=== PATIENT | male | born 1960 | race Caucasian/White ===

== ENCOUNTER 2021-05-23 02:20 | Day surgery (SDC) | payer OTHER, SELFPAY ==
[2021-05-19 12:27] VITALS: BMI 22.8
--- NOTE | 2021-05-23 09:58 | WPDANESEPPF ---
Anes - Initial Pre Proc Eval Procedure: Operation Date: 05/23/21 10:45 Proposed Procedures p Screening Colonoscopy - Syed Singletary MD Date/Time: 05/23/21 09:58 Surgeon: Syed Singletary MD Pre Op Diagnosis: neoplasm screening Patient Data Age: 60 Gender: M Height: 1.83 m Weight: 76.3 kg Allergies Allergy/AdvReac Type Severity Reaction Status Date / Time No Known Allergies Allergy Verified 05/23/21 10:34 Home Medications Medication Instructions Recorded Confirmed Type multivit with min-folic tablet PO 04/18/21 History acid-lutein 200 mcg-137.5 mcg chewable tablet omega-3 fatty acids 1,000 mg 1,000 mg PO BID 04/18/21 History capsule Patient hx anesthesia problems: none Family hx anesthesia problems: none PMFSH Past Medical History Medical History BMI 23.0-23.9, adult Family History Family History (Updated 04/18/21 @ 10:03 by Starla Cullen) Father Malignant neoplasm of prostate Mother Alzheimer disease Grandparent Diabetes mellitus Alzheimer disease Social History Social History Smoking status: Never smoker Alcohol intake: current Alcohol use details: OCCASIONALLY Substance use: never Substance use type: does not use Living arrangements: with family Spiritual care concerns: No Anes - Eval Final PreProcedure Day of Procedure 05/23/21 09:58 Patient weight: normal Heart: regular rate and rhythm Lungs: clear to auscultation and normal air movement Airway: Mallampati scale class II Neurological: alert and oriented Last oral intake: >/= 8 hours ASA classification: I Emergent: no Anesthetic plan: proceed Anesthesia type and monitoring: general GIVS Informed Consent: The patient's anesthetic plan and its attendant risks and benefits were discussed with the patient/family/POA. Questions were solicited and answers provided to the satisfaction of the patient/family/POA.
--- NOTE | 2021-05-23 10:31 | P.CONGI_ITS ---
Assessment and Plan Assessment and plan (1) Screening for colon cancer: Code(s): Z12.11 - Encounter for screening for malignant neoplasm of colon Status: Acute Assessment and Plan: Patient presents for neoplasia screening exam today. Colonoscopy will be performed. Patient appears to be at average risk for colon polyps. GI Consult Note Consult date/time: 05/23/21 10:31 HPI: Quin Michel is a 60 year old male Presents for screening colonoscopy. He reports that his weight appetite bowel movements are normal. His last exam was 10 years ago. Patient states his bowel habits are regular. He denies abdominal pain. He has had no bleeding. Family history is noncontri butory. Screening colonoscopy suggested today. Review of Systems Review of Systems: All systems reviewed & are unremarkable except as noted in HPI and below PMFSH Past Medical History Medical History BMI 23.0-23.9, adult Family History Family History (Updated 04/18/21 @ 10:03 by Starla Cullen) Father Malignant neoplasm of prostate Mother Alzheimer disease Grandparent Diabetes mellitus Alzheimer disease Social History Social History Smoking status: Never smoker Alcohol intake: current Alcohol use details: OCCASIONALLY Substance use: never Substance use type: does not use Living arrangements: with family Spiritual care concerns: No Meds Home Medications and Allergies Home Medications Medication Instructions Recorded Confirmed Type multivit with min-folic tablet PO 04/18/21 History acid-lutein 200 mcg-137.5 mcg chewable tablet omega-3 fatty acids 1,000 mg 1,000 mg PO BID 04/18/21 History capsule Allergies Allergy/AdvReac Type Severity Reaction Status Date / Time No Known Allergies Allergy Verified 05/19/21 12:41 Exam Narrative: Physical exam reveals patient to be alert. Vital signs stable. HEENT exam is unremarkable. Patient is anicteric. Lungs are clear to auscultation and percussion. Heart is without murmur or extra sounds. Abdominal exam bowel sounds are present soft nontender with no organomegaly. Digital external rectal exam is normal.
[2021-05-23 10:36] VITALS: BP 125/70; PULSE 51; RESP 16; TEMP 36; O2SAT 100; BMI 23.1
[2021-05-23] MEDS: LACTATED RINGERS 1,000 ML 150 ML IV CONT (10:53)
[2021-05-23 11:31] VITALS: BP 92/63; PULSE 51; RESP 15; O2SAT 100
[2021-05-23 11:41] VITALS: BP 114/71; PULSE 50; RESP 12; O2SAT 100
[2021-05-23 11:51] VITALS: BP 114/71; PULSE 50; RESP 15; O2SAT 100
== END 2021-05-23 11:59 | disposition home or self-care (01) ==
PROVIDERS: PCP Family Medicine; Visit Provider Internal Medicine Gastroenterology
PROC: 0DJD8ZZ Inspection of Lower Intestinal Tract, Via Natural or Artificial Opening Endoscopic (ICD-10-PCS; CPT 45378; principal; 2021-05-23 10:45)
DX: Z12.11 Encounter for screening for malignant neoplasm of colon (principal); K64.8 Other hemorrhoids
CPT/HCPCS: 45378; J2704; J7120

== ENCOUNTER 2024-08-11 11:09 | Outpatient (CLI) | payer OTHER, SELFPAY ==
[2024-08-11 11:33] LABS: Basophils Absolute Auto 0.1 K/mm3 (0.0-0.1); Basophils Percent Auto 1.3 % (0.2-1.2); Eosinophils Absolute Auto 0.1 K/mm3 (0-0.3); Eosinophils Percent Auto 2.1 % (0-4.4); Hematocrit 48.6 % (42.0-52.0); Immature Granulocyte Absolute 0.01 K/mm3 (0.00-0.031); Immature Granulocyte Percent A 0.3 % (0-0.5); Lymphocytes Absolute Auto 1.17 K/mm3 (0.9-3.2); Lymphocytes Percent Auto 30.5 % (18.3-44.2); Mean Corpuscular HGB Conc 32.9 g/dl (32-36); Mean Corpuscular Hemoglobin 30.3 pg (26-34); Mean Platelet Volume 8.9 fl (7.4-10.4); Monocytes Absolute Auto 0.4 K/mm3 (0.1-0.6); Monocytes Percent Auto 10.2 % (2.6-8.5); Neutrophils Absolute Auto 2.1 K/mm3 (1.3-6.7); Neutrophils Percent Auto 55.6 % (45.5-73.1); Platelet Count Result 243 k/mm3 (150-375); Red Blood Count 5.28 M/mm3 (4.6-6.20); Red Cell Distribution Width 12.9 % (11.5-14.5); White Blood Count 3.8 K/mm3 (4.5-10.0)
[2024-08-11 13:20] LABS: Iron 115 ug/dL (49-181)
[2024-08-11 13:21] LABS: Alanine Aminotransferase 19 U/L (6-50); Albumin Level 4.8 g/dL (3.5-5.1); Alkaline Phosphatase 44 U/L (38-126); Anion Gap 5 mmol/L (4-12); Aspartate Amino Transferase 27 U/L (17-59); Bilirubin,Total 1.5 mg/dL (0.2-1.3); Blood Urea Nitrogen 13 mg/dL (9-20); Calcium 9.9 mg/dL (8.4-10.2); Carbon Dioxide 32 mmol/L (22-30); Chloride 102 mmol/L (98-107); Estimated Glomerular Filt Rate > 60; Glucose 104 mg/dL (65-110); Potassium 4.6 mmol/L (3.4-5.0); Sodium 139 mmol/L (137-145)
[2024-08-11 13:33] LABS: Percent Iron Saturation 34 % (20-50)
[2024-08-11 14:27] LABS: Folic Acid 10.3 ng/mL (2.76->20)
== END 2024-08-11 11:10 | disposition home or self-care (01) ==
LOC: ANHLAB 11:11
PROVIDERS: PCP Family Medicine; Visit Provider Internal Medicine Hematology & Oncology
DX: D70.9 Neutropenia, unspecified (principal); D64.9 Anemia, unspecified
CPT/HCPCS: 36415; 80053; 82607; 82728; 82746; 83540; 83550; 85025; 86038; 86039; 88184

== ENCOUNTER 2024-09-08 08:42 | Outpatient (CLI) | payer OTHER, SELFPAY ==
--- NOTE | ~2024-09-08 | US_ITS ---
EXAM: ABDOMEN ULTRASOUND HISTORY: Neutropenia COMPARISON: None FINDINGS: LIVER: The liver is unremarkable in size measuring 15.6cm in longitudinal dimension. Multiple rounded areas of increased echogenicity within the liver suggesting hemangiomas. The main portal vein is patent demonstrating hepatopedal flow. GALLBLADDER: No stones are identified within the gallbladder. No gallbladder wall thickening or pericholecystic fluid. BILE DUCTS: Common bile duct measures 2.4mm. PANCREAS: Limited evaluation of the pancreas secondary to overlying bowel gas SPLEEN: The spleen is unremarkable in echogenicity and size measuring 9.6cm in longitudinal dimension . RIGHT KIDNEY: 10.2 cm. In length. No hydronephrosis or bulky renal calculi. LEFT KIDNEY: 11.6cm in length. No hydronephrosis or renal calculi. VASCULATURE : The abdominal aorta is nonaneurysmal. The IVC is patent. IMPRESSION: Multiple hyperechoic foci within the liver, for which hemangiomas are suspected and for which contras t enhanced MRI (with liver mass protocol) may be performed for confirmation. Unremarkable sonographic evaluation of the abdomen, as detailed above. Evaluation of the pancreas is limited by overlying bowel gas. Reviewed, dictated and finalized at location A. CONSULTANT IMPRESSION: Multiple hyperechoic foci within the liver, for which hemangiomas are suspected and for which contrast enhanced MRI (with liver mass protocol) may be performe d for confirmation. Unremarkable sonographic evaluation of the abdomen, as detailed above. Evaluation of the pancreas is limited by overlying bowel gas.
== END 2024-09-08 08:43 | disposition home or self-care (01) ==
PROVIDERS: PCP Family Medicine; Visit Provider Internal Medicine Hematology & Oncology
DX: D70.9 Neutropenia, unspecified (principal)
CPT/HCPCS: 76700

== ENCOUNTER 2025-04-21 13:47 | Outpatient (CLI) | payer OTHER, SELFPAY ==
[2025-04-21 13:55] LABS: Hematocrit 46.8 % (42.0-52.0); Hemoglobin 15.1 g/dL (14.0-18.0); Immature Granulocyte Percent A 0.3 % (0-0.5); Lymphocytes Absolute Auto 0.97 K/mm3 (0.9-3.2); Mean Corpuscular HGB Conc 32.3 g/dl (32-36); Mean Corpuscular Hemoglobin 29.8 pg (26-34); Mean Corpuscular Volume 92.3 fl (80-100); Nucleated Red Blood Cells Absolute Auto 0.000 K/mm3 (0.0-0.012); Nucleated Red Blood Cells Perc 0.0 % (0.0-0.2); Platelet Count Result 262 k/mm3 (150-375); Red Blood Count 5.07 M/mm3 (4.6-6.20); White Blood Count 7.9 K/mm3 (4.5-10.0)
[2025-04-21 14:01] LABS: Blood Urea Nitrogen 33 mg/dL (8-26); Carbon Dioxide 27 mmol/L (22-30); Chloride 97 mmol/L (98-109); Estimated Glomerular Filt Rate 38; Glucose 97 mg/dL (70-105); Ionized Calcium (POC) 1.19 mmol/L (1.11-1.31); Potassium 4.6 mmol/L (3.5-4.9); Sodium 135 mmol/L (138-146)
--- OUTSIDE RECORDS SUMMARY | 2025-04-21 14:08 | XMS_ITS | Encounter Summary ---
Author Organization [facility] (FORMERLY [facility])[3] LISA Arthur [facility] Address [address] [place] [address] Care Team Providers Care Credit Report Checker Name Role Phone Antonio Ivey MD Primary Care Provider [phone] Reason for Visit * Reason Comments Follow Up Encounter Details Date Type Department Care Team (Late st Contact Info) Description 04/21/2025 2:15 PM CDT Office Visit [facility] Oncology and Hematology - Saw [address] [facility] [address] [place] [address] Oliver Farooq MD [address] [facility] [address] [place] [address] Arrived Social History Tobacco Use Types Packs/Day Years Used Date Smoking Tobacco: Never Smokeless Tobacco: Never Alcohol Use Standard Drinks/Week Comments Yes 0 (1 standard drink = 0.6 oz pure alcohol) occasionally-maybe once a week if that Sex and Gender Information Value Date Recorded Sex Assigned at Not on file Legal Sex Male 12:31 PM CDT Gender Identity Not on file Sexual Orientation Not on file documented as of this encounter Last Filed Vital Signs Vital Sign Reading Time Taken Comments Blood Pressure 107/72 04/21/2025 1:57 PM CDT Pulse 77 04/21/2025 1:57 PM CDT Temperature 36.5 C (97.7 F) 04/21/2025 1:57 PM CDT Respiratory Rate - - Oxygen Saturation 99% 04/21/2025 1:57 PM CDT Inhaled Oxygen Concentration - - Weight 77.6 kg (171 lb) 04/21/2025 1:57 PM CDT Height 182.9 cm (6') 04/21/2025 1:57 PM CDT Body Mass Index 23.19 04/21/2025 1:57 PM CDT documented in this encounter Plan of Treatment Not on file documented as of this encounter Visit Diagnoses Not on filedocumented in this encounter Care Teams Credit Report Checker Relationship Specialty Start Date End Date Antonio Ivey MD [address] [place] [address] PCP - General Family Practice 06/20/24 documented as of this encounter
--- OUTSIDE RECORDS SUMMARY | 2025-04-21 14:08 | XMS_ITS | Clinical Summary ---
Author Organization [facility] (Formerly [facility]) Marni guardado Sairafrank Address [address] [place] [address] Care Team Providers Care Appraiser Timber Name Role Phone Antonio Ivey MD Primary Care Provider [phone] Allergies No known active allergies Medications No known medications Active Problems No known active problems Encounters Date Type Department Care Team Description 04/21/2025 2:15 PM CDT Office Visit [facility] Oncology and Hematology - [address] [address] Oliver Farooq MD Arrived from Last 3 Months Family History Medical History Relation Name Comments No Known Problems Child Liver Cancer Father Pancreatic Cancer Father No Known Problems Mother Cancer - Other Sister 1 No Known Problems Sister 2 Relation Name Status Comments Child Alive Father Mother Sister 1 Sister 2 Alive Social History Tobacco Use Types Packs/Day Years [...] on file Sexual Orientation Not on file Last Filed Vital Signs Vital Sign Reading Time Taken Comments Blood Pressure 107/72 04/21/2025 1:57 PM CDT Pulse 77 04/21/2025 1:57 PM CDT Temperature 36.5 C (97.7 F) 04/21/2025 1:57 PM CDT Respiratory Rate 16 08/11/2024 10:24 AM DIGITAL MARKETING SPECIALIST Oxygen Saturation 99% 04/21/2025 1:57 PM CDT Inhaled Oxygen Concentration - - Weight 77.6 kg (171 lb) 04/21/2025 1:57 PM CDT Height 182.9 cm (6') 04/21/2025 1:57 PM CDT Body Mass Index 23.19 04/21/2025 1:57 PM CDT Plan of Treatment Upcoming Encounters Date Type Department Care Team (Late st Contact Info) Description 04/21/2025 2:15 PM CDT Office Visit [facility] Oncology and Hematology [facility] [address] [place] [address] Oliver Farooq MD [address] [facility] [address] [place] [address] Arrived Health Maintenance Due Date Last Done Comments Pre-Diabetes and Diabetes Screening 1960 DTAP/TDAP/TD VACCINES (1 - Tdap) 11/14/1979 COLORECTAL SCREENING 2005 Colorectal Cancer Screening 2005 FIT-DNA Q 3 years 2005 FIT/FOBT Q 1 year 2005 Flex Sig/CT Colonography Q 5 years 2005 ZOSTER VACCINE (1 of 2) 2010 Preventative Visit- Commercial 09/10/2024 INFLUENZA VACCINE (#1) 2025 RSV VACCINE (60+ or ) (1 - 1-dose 75+ series) 11/14/2035 Procedures Procedure Name Priority Date/Time Associated Diagnosis Comments VITAMIN B12 AND FOLATE Routine 04/13/2025 7:08 AM CDT Chronic anemia from Last 3 Months Results * VITAMIN B12 AND FOLATE (04/13/2025 7:08 AM CDT) VITAMIN B12 413 200 - 1100 pg/mL [facility] FOLATE, SERUM 14.8 ng/mL [facility] Comment: Reference Range Low: <3.4 Borderline: 3.4-5.4 Normal: >5.4 FASTING:YES FASTING: YES Test Performed at: [email or web address] [id number] [place] [address] Jordy Trivedi MD Blood 04/13/2025 7:08 AM CDT 04/13/2025 7:08 AM CDT us Oliver Farooq MD CHEMISTRY ORDERABLES Final Resu lt [facility] [phone] [facility] [id number] [address] [id number] from Last 3 Months Insurance [employer] CHOICE POS II Care Teams Appraiser Timber Relationship Specialty Start Date End Date Antonio Ivey MD [address] [place] [address] PCP - General Family Practice 06/20/24
[2025-04-21 16:28] LABS: Alanine Aminotransferase 30 U/L (6-50); Albumin Level 5.2 g/dL (3.5-5.1); Alkaline Phosphatase 52 U/L (38-126); Anion Gap 9 mmol/L (4-12); Aspartate Amino Transferase 64 U/L (17-59); Bilirubin,Total 3.1 mg/dL (0.2-1.3); Blood Urea Nitrogen 31 mg/dL (9-20); Calcium 10.0 mg/dL (8.4-10.2); Carbon Dioxide 27 mmol/L (22-30); Chloride 96 mmol/L (98-107); Estimated Glomerular Filt Rate 43; Glucose 99 mg/dL (65-110); Potassium 4.8 mmol/L (3.4-5.0); Sodium 132 mmol/L (137-145); Total Protein 9.3 g/dL (6.3-8.2)
== END 2025-04-21 13:48 | disposition home or self-care (01) ==
LOC: ANHLAB 13:47
PROVIDERS: PCP Family Medicine; Visit Provider Internal Medicine Hematology & Oncology
DX: D64.9 Anemia, unspecified (principal)
CPT/HCPCS: 36415; 80047; 80053; 85025

== ENCOUNTER 2025-07-13 08:04 | Outpatient (CLI) | payer OTHER, SELFPAY ==
--- OUTSIDE RECORDS SUMMARY | 2025-07-13 08:10 | XMS_ITS | Clinical Summary ---
Author Organization [facility] Marni guardado Melisa Address [address] [place] [address] Care Team Providers Care Meat Pumper Name Role Phone Antonio Ivey MD Primary Care Provider [phone] Allergies No known active allergies Medications No known medications Active Problems No known active problems Encounters Date Type Department Care Team Description 06/30/2025 External Device Data STL ABSTRACTION Provider, Abstract 05/26/2025 External Device Data STL ABSTRACTION Provider, Abstract 04/22/2025 Orders Only [facility] Oncology and Hematology - [address] [place] [id number] Oliver Farooq MD 04/21/2025 2:15 PM CDT Office Visit [facility] Oncology and Hematology [facility] [address] [place] [address] Oliver Farooq MD Chronic anemia (Primary Dx) 04/21/2025 Orders Only [facility] Oncology and Hematology [facility] [address] [place] [address] Oliver Farooq MD from Last 3 Months Family History Medical [...] CDT Respiratory Rate 16 08/11/2024 10:24 AM FINAL EXPENSE AGENT Oxygen Saturation 99% 04/21/2025 1:57 PM CDT Inhaled Oxygen Concentration - - Weight 77.6 kg (171 lb) 04/21/2025 1:57 PM CDT Height 182.9 cm (6') 04/21/2025 1:57 PM CDT Body Mass Index 23.19 04/21/2025 1:57 PM CDT Plan of Treatment Upcoming Encounters Date Type Department Care Team (Late st Contact Info) Description 08/11/2025 2:15 PM FINAL EXPENSE AGENT Office Visit [facility] Oncology and Hematology [facility] [address] [facility] [address] [place] [address] Oliver Farooq MD [address] [facility] [address] [place] [address] Health Maintenance Due Date Last Done Comments DTAP/TDAP/TD VACCINES (1 - Tdap) 11/14/1979 COLORECTAL SCREENING 2005 Colorectal Cancer Screening 2005 FIT-DNA Q 3 years 2005 FIT/FOBT Q 1 year 2005 Flex Sig/CT Colonography Q 5 years 2005 ZOSTER VACCINE (1 of 2) 2010 INFLUENZA VACCINE (#1) 2025 RSV VACCINE (60+ or ) (1 - 1-dose 75+ series) 11/14/2035 Procedures Procedure Name Priority Date/Time Associated Diagnosis Comments CBC WITH AUTODIFFERENTIAL Routine 04/21/2025 4:18 PM CDT COMPREHENSIVE METABOLIC PANEL Routine 04/21/2025 12:15 PM CDT VITAMIN B12 AND FOLATE Routine 7:08 AM CDT Chronic anemia from Last 3 Months Results * CBC WITH AUTODIFFERENTIAL (04/21/2025 4:18 PM CDT) Blood Oliver Farooq MD HEMATOLOGY ORDERABLES Final Res ult * COMPREHENSIVE METABOLIC PANEL (04/21/2025 12:15 PM CDT) Blood Oliver Farooq MD CHEMISTRY ORDERABLES Final Resu lt * VITAMIN B12 AND FOLATE (04/13/2025 7:08 AM CDT) VITAMIN B12 413 200 - 1100 pg/mL [facility] FOLATE, SERUM 14.8 ng/mL [facility] Comment: Reference Range Low: <3.4 Borderline: 3.4-5.4 Normal: >5.4 FASTING:YES FASTING: YES Test Performed at: [facility] [address] [place] [address] Jordy Trivedi MD Blood 04/13/2025 7:08 AM CDT 04/13/2025 7:08 AM CDT Oliver Farooq MD CHEMISTRY ORDERABLES Final Resu lt [facility] [phone] [facility] [address] [place] [address] from Last 3 Months Insurance [employer] CHOICE POS II Care Teams Meat Pumper Relationship Specialty Start Date End Date Antonio Ivey MD [address] [place] [address] PCP - General Family Practice 06/20/24
== END 2025-07-13 08:05 | disposition home or self-care (01) ==
LOC: ANHAUDASC 08:05
PROVIDERS: PCP Family Medicine; Visit Provider Nurse Practitioner Family
DX: H90.3 Sensorineural hearing loss, bilateral (principal)
CPT/HCPCS: 92557; 92567